=== PATIENT | male | born 1955 | race Caucasian/White ===

== ENCOUNTER 2018-11-12 06:29 | Emergency (ER) | payer MEDICARE, OTHER ==
[~2018-11-12] VITALS: Ht 167.6 cm; Wt 60.0 kg
[~2018-11-12 06:29] MED LIST: AMLO-511 PO; ASPI-1198 PO; CHOL10002 PO; FURO20 PO; METO25 PO; OMEP10SU2 PO; TENO300 PO
[2018-11-12] MEDS ORDERED: MECLIZINE HCL 25 MG TABLET PO ONE (07:00)
[2018-11-12 07:03] LABS: BASOPHILS % (AUTO) 0.6 % (0.0-2.0); HEMATOCRIT 32.7 % (41-53); HEMOGLOBIN 11.3 g/dL (13.5-17.5); LYMPHOCYTES # (AUTO) 0.9 K/uL (1.0-4.8); LYMPHOCYTES % (AUTO) 14.1 % (22.0-44.0); MEAN CORPUSCULAR HEMOGLOBIN 31.4 pg (26.0-34.0); MEAN CORPUSCULAR HGB CONC 34.6 G/dL (31.0-37.0); MEAN CORPUSCULAR VOLUME 91 fL (80-100); MONOCYTES # (AUTO) 0.3 K/uL (0.1-1.0); MONOCYTES % (AUTO) 5.2 % (2.0-9.0); NEUTROPHILS # (AUTO) 4.8 K/uL (1.8-7.7); NEUTROPHILS % (AUTO) 75.1 % (40.0-70.0); PLATELET COUNT (AUTO) 179 K/uL (150-450); RED BLOOD CELL COUNT(AUTO) 3.59 MIL/uL (4.50-5.90); RED CELL DISTRIBUTION WIDTH 13.3 % (11.5-14.5)
[2018-11-12 07:10] LABS: CREATININE 1.84 mg/dL (0.60-1.30); POTASSIUM 4.4 mmol/L (3.5-5.1)
[2018-11-12 07:16] LABS: ALBUMIN 3.5 g/dL (3.4-5.0); BILIRUBIN,TOTAL 0.3 mg/dL (0.1-1.0); CALCIUM, TOTAL 8.9 mg/dL (8.8-10.5); TOTAL PROTEIN, SERUM 7.6 g/dL (6.4-8.2)
[2018-11-12 07:38] LABS: GLUCOSE,POINT OF CARE 153 MG/DL (70-110)
[2018-11-12 09:44] VITALS: BP 143/80
== END 2018-11-12 10:23 | disposition home or self-care (01) ==
LOC: EMS 06:32
DX: R42 Dizziness and giddiness (principal); I11.0 Hypertensive heart disease with heart failure; I50.9 Heart failure, unspecified; E11.9 Type 2 diabetes mellitus without complications; Z79.899 Other long term (current) drug therapy
CPT/HCPCS: 70450

== ENCOUNTER 2020-01-29 21:49 | Emergency (ER) | payer MEDICARE, OTHER ==
[~2020-01-29] VITALS: Ht 162.6 cm; Wt 64.5 kg
[~2020-01-29 21:49] MED LIST changes: -AMLO-511 PO; +AMLO5TAB9 PO
[2020-01-29 21:58] VITALS: BP 189/94
[2020-01-29] MEDS ORDERED: ATOR40TA28 PO (21:58)
[2020-01-29] MEDS ORDERED: VALS40TA4 PO (21:58)
[2020-01-29] MEDS ORDERED: METF-960 PO (21:58)
[2020-01-29] MEDS ORDERED: FERR325T22 PO (21:58)
== END 2020-01-29 22:35 | disposition left against medical advice (07) ==
LOC: EMS 21:50
DX: M79.675 Pain in left toe(s) (principal); Z53.21 Procedure and treatment not carried out due to patient leaving prior to being seen by health care provider

== ENCOUNTER 2022-03-29 10:50 | Emergency (ER) | payer MEDICARE, OTHER ==
[~2022-03-29] VITALS: Ht 170.2 cm; Wt 63.6 kg
[~2022-03-29 10:50] MED LIST changes: -AMLO5TAB9 PO; +ATOR40TA28 PO; +FERR325T22 PO; +METF-1211 PO; -METO25 PO; -OMEP10SU2 PO; +VALS40TA4 PO
[2022-03-29 11:31] LABS: GLUCOMETER DEV NAME(LOC) ERT.5; GLUCOSE,POINT OF CARE 118 MG/DL (70-110)
[2022-03-29 12:09] LABS: ANION GAP 10 mmol/L (8-16); CARBON DIOXIDE 26 mmol/L (22-29); CHLORIDE 102 mmol/L (98-107); GLUCOSE,RANDOM 133 mg/dL (70-110); POTASSIUM 4.7 mmol/L (3.5-5.1); SODIUM SERUM 138 mmol/L (136-145); UREA NITROGEN, BLOOD 39 mg/dL (7-18)
[2022-03-29 12:10] LABS: CALCIUM, TOTAL 9.3 mg/dL (8.8-10.5); GLOMERULAR FILTR. RATE CALC 31 mL/min (>60)
[2022-03-29 12:16] LABS: BASOPHILS % (AUTO) 0.4 % (0.0-2.0); EOSINOPHILS % (AUTO) 6.9 % (1.0-6.0); HEMATOCRIT 30.9 % (41-53); HEMOGLOBIN 10.8 g/dL (13.5-17.5); LYMPHOCYTES # (AUTO) 1.4 K/uL (1.0-4.8); LYMPHOCYTES % (AUTO) 26.5 % (22.0-44.0); MEAN CORPUSCULAR HEMOGLOBIN 31.6 pg (26.0-34.0); MEAN CORPUSCULAR VOLUME 90 fL (80-100); MONOCYTES # (AUTO) 0.4 K/uL (0.1-1.0); MONOCYTES % (AUTO) 7.9 % (2.0-9.0); NEUTROPHILS % (AUTO) 58.3 % (40.0-70.0); PLATELET COUNT (AUTO) 173 K/uL (150-450); RED BLOOD CELL COUNT(AUTO) 3.42 MIL/uL (4.50-5.90); RED CELL DISTRIBUTION WIDTH 13.5 % (11.5-14.5)
[2022-03-29 12:18] LABS: LACTIC ACID 0.9 mmol/L (0.4-2.0)
[2022-03-29 12:19] LABS: APPEARANCE,URINE CLEAR (CLEAR); BILIRUBIN,URINE NEGATIVE (NEGATIVE); GLUCOSE, URINE (UA) NEGATIVE (NEGATIVE); KETONES,URINE NEGATIVE (NEGATIVE); LEUKOCYTE ESTERASE ,URINE NEGATIVE (NEGATIVE); NITRATE,URINE NEGATIVE (NEGATIVE); OCCULT BLOOD,URINE NEGATIVE (NEGATIVE); PH,URINE 5.5 (5.0-8.0); PROTEIN,URINE 30-70 mg/dL (NEGATIVE); SPECIFIC GRAVITIY, URINE 1.011 (1.003-1.030); UROBILINOGEN,URINE <=1.0 mg/dL (<=1.0)
[2022-03-29 12:26] LABS: BACTERIA,URINE None Seen /HPF (None Seen); RBC,URINE None Seen /HPF (0-2); WBC,URINE None Seen /HPF (0-5)
[2022-03-29 12:35] LABS: ALANINE AMINOTRANSFERASE 36 U/L (12-78); ALBUMIN 4.2 g/dL (3.4-5.0); ALKALINE PHOSPHATASE 99 U/L (46-116); ASPARTATE AMINOTRANSFERASE 28 U/L (15-37); BILIRUBIN,TOTAL 0.7 mg/dL (0.1-1.0); CREATINE KINASE, TOTAL ONLY 104 U/L (39-308); LIPASE 78 U/L (73-393); TOTAL PROTEIN, SERUM 8.2 g/dL (6.4-8.2)
[2022-03-29 13:40] VITALS: BP 140/78
[2022-03-29 13:44] LABS: B-TYPE NATRIURETIC PEPTIDE 70 pg/mL (0-100)
== END 2022-03-29 14:59 | disposition home or self-care (01) ==
LOC: EMS 10:50
DX: I13.0 Hypertensive heart and chronic kidney disease with heart failure and stage 1 through stage 4 chronic kidney disease, or unspecified chronic kidney disease (principal); N18.9 Chronic kidney disease, unspecified; I50.9 Heart failure, unspecified; E11.9 Type 2 diabetes mellitus without complications; Z87.19 Personal history of other diseases of the digestive system
CPT/HCPCS: 99283; 80053; 81001; 82550; 82962; 83605; 83690; 83880; 84484; 85025; 36415; G0480

== ENCOUNTER 2022-05-22 13:58 | Emergency (ER) | payer MEDICARE, OTHER ==
[~2022-05-22] VITALS: Ht 165.1 cm; Wt 62.7 kg
[2022-05-22] MEDS ORDERED: ACETAMINOPHEN 500 MG TABLET PO ONE (15:15)
[2022-05-22] MEDS ORDERED: PROPARACAINE HCL 0.5% 15 ML OPHTHALMIC SOLUTION OU ONE (15:15)
[2022-05-22] MEDS ORDERED: ASPI-1444 PO (15:16)
[2022-05-22] MEDS ORDERED: AMLO5TAB66 PO (15:16)
[2022-05-22] MEDS ORDERED: FLUT16H NASAL (15:16)
[2022-05-22] MEDS ORDERED: ATOR20TA86 PO (15:16)
[2022-05-22] MEDS ORDERED: FOLI1CAP24 PO (15:16)
[2022-05-22] MEDS ORDERED: CHOL25TA4 PO (15:16)
[2022-05-22] MEDS ORDERED: FEBU40TA3 PO (15:16)
[2022-05-22] MEDS ORDERED: FLUORESCEIN SODIUM 1 MG STRIP ONE (15:19)
[2022-05-22] MEDS ORDERED: ACET-66 PO (15:39)
[2022-05-22 16:00] VITALS: BP 130/61
[2022-05-22] MEDS ORDERED: ERYTHROMYCIN 0.5% 3.5 GM TUBE OPHTHALMIC OINTMENT OS ONE (16:00)
[2022-05-22] MEDS ORDERED: HYDROCODONE/ACETAMINOPHEN 5-325 MG TABLET PO ONE (16:00)
== END 2022-05-22 16:18 | disposition home or self-care (01) ==
LOC: EMS 14:00
DX: S00.12XA Contusion of left eyelid and periocular area, initial encounter (principal); I50.9 Heart failure, unspecified; E11.9 Type 2 diabetes mellitus without complications; I10 Essential (primary) hypertension; N28.9 Disorder of kidney and ureter, unspecified; X58.XXXA Exposure to other specified factors, initial encounter; Y93.89 Activity, other specified; Y92.411 Interstate highway as the place of occurrence of the external cause; Y99.8 Other external cause status
CPT/HCPCS: 82962; 99283; 99284